=== PATIENT | male | born 1935 | race Caucasian/White ===

== ENCOUNTER 2020-03-10 12:30 | Emergency (ER) | payer OTHER ==
[~2020-03-10] VITALS: Ht 193 cm; Wt 108.9 kg
[2020-03-10] MEDS ORDERED: GALANTAMINE HBR16 MG PO (12:37)
[2020-03-10] MEDS ORDERED: FAMCICLOVIR250 MG PO (12:37)
[2020-03-10] MEDS ORDERED: LANOXIN62.5 MCG PO (12:37)
[2020-03-10] MEDS ORDERED: GLYCOPYRROLATE 11 MG PO (12:38)
[2020-03-10] MEDS ORDERED: LORCET 5-325 M1 EACH PO (12:38)
[2020-03-10] MEDS ORDERED: MELATONIN5 MG PO (12:38)
[2020-03-10] MEDS ORDERED: MIDODRINE HCL 55 M1 PO (12:39)
[2020-03-10] MEDS ORDERED: OLOPATADINE HC2.5 ML OPHTHALMIC (12:39)
[2020-03-10] MEDS ORDERED: PROAIR HFA8.5 GM INH (12:40)
[2020-03-10] MEDS ORDERED: OMEPRAZOLE 20 M20 M1 PO (12:40)
[2020-03-10] MEDS ORDERED: KONSYL6 GM PO (12:42)
[2020-03-10] MEDS ORDERED: SERTRALINE HCL100 MG PO (12:42)
[2020-03-10] MEDS ORDERED: FLOMAX0.4 MG PO (12:43)
[2020-03-10] MEDS ORDERED: VITAMIN E-20200 UNIT PO (12:43)
[2020-03-10 13:02] LABS: ABSOLUTE NEUTROPHILS 6.2 thou/uL (1.4-8.2); BASOPHILS 0.5 % (0.0-2.0); EOSINOPHILS 0.6 % (0.0-3.0); HEMATOCRIT 37.2 % (42.0-52.0); HEMOGLOBIN 12.6 gm/dL (14.0-18.0); LYMPHOCYTES 10.6 % (24.0-44.0); MCH 31.6 pg (26.0-34.0); MCHC 33.8 g/dL (28.0-37.0); MCV 93.3 fL (80.0-100.0); MONOCYTES 10.8 % (1.0-8.0); PLATELET COUNT 248 thou/uL (150-400); POLYS 77.5 % (36.0-66.0); RBC 3.99 mil/uL (4.50-6.00); RDW 14.6 % (10.5-14.5)
[2020-03-10 13:09] LABS: CALCIUM 9.2 mg/dL (8.5-10.1); CREATININE 1.7 mg/dL (0.7-1.3); POTASSIUM 4.5 mmol/L (3.5-5.1)
[2020-03-10 13:14] LABS: ALBUMIN 3.4 g/dL (3.4-5.0); DIRECT BILIRUBIN 0.4 mg/dL (<0.1-0.2)
[2020-03-10 13:57] LABS: APTT 38.6 Seconds (24.5-32.8); INR 1.6; PROTIME 16.2 Seconds (9.3-11.4)
[2020-03-10 17:42] VITALS: BP 154/88
--- NOTE | 2020-03-11 09:34 | EKG ---
[facility] [address] [place] [address] ELECTROCARDIOGRAM REPORT Name: AMANDA LU Room #: DEP [facility]#: [id number] Admission: 03/10/20 Attend Phys: Discharge: 03/10/20 Date of : 35 Report #: [id number] THIS REPORT FOR: cc: FAM - Family physician unknown FAM - Family physician unknown Navid Cornelius MD [facility] THIS REPORT FOR: //name// [facility] ED Test Date: 2020-03-10 Test Time: 12:40:22 Pat Name: AMANDA LU Department: Room: Gender: Junior Art Director: [facility] : 1935 Requested By: Jennifer Forman Order Number: [id number] MD: Navid Cornelius Measurements Intervals [place] Rate: 81 P: PA: QRS: 0 QRSD: 119 T: 196 QT: 342 QTc: 397 Interpretive Statements Atrial fibrillation Ventricular premature complex Nonspecific intraventricular conduction delay Repol abnrm Baseline wander in lead(s) V4,V5 No previous ECG available for comparison Electronically Signed On 03-11-2020 9:32:30 CDT by Navid Cornelius [email or web address] <ELECTRONICALLY SIGNED> By: Navid Cornelius MD, FAC 03/11/20 0932 1240 1240 Navid Cornelius MD, [facility] /EPI
== END 2020-03-10 17:42 | disposition home or self-care (01) ==
LOC: ER 12:30
PROVIDERS: Emergency Medicine
DX: S30.0XXA Contusion of lower back and pelvis, initial encounter (principal); I50.9 Heart failure, unspecified; I11.0 Hypertensive heart disease with heart failure; I48.20 Chronic atrial fibrillation, unspecified; Z79.01 Long term (current) use of anticoagulants; Z79.899 Other long term (current) drug therapy; W07.XXXA Fall from chair, initial encounter; Y93.89 Activity, other specified; Y92.89 Other specified places as the place of occurrence of the external cause; Y99.8 Other external cause status